=== PATIENT | female | born 1955 | race Caucasian/White ===

== ENCOUNTER 2020-11-05 09:55 | Emergency (ER) | payer MEDICAID ==
[~2020-11-05] VITALS: Ht 162.6 cm; Wt 79.5 kg
[2020-11-05] MEDS ORDERED: SIMV-259 PO (10:12)
[2020-11-05] MEDS ORDERED: INSLAN SQ (10:12)
[2020-11-05] MEDS ORDERED: thyroid med PO (10:12)
[2020-11-05] MEDS ORDERED: [UNRECOGNIZED DRUG - OTHER] IH (10:12)
[2020-11-05] MEDS ORDERED: INSU100V SQ (10:12)
[2020-11-05 10:54] LABS: COVID AG,FIA SOURCE NASOPHARYNGEAL
[2020-11-05 11:25] LABS: BASOPHILS % (AUTO) 1.1 % (0.0-2.0); EOSINOPHILS % (AUTO) 3.5 % (1.0-6.0); HEMATOCRIT 38.9 % (36-46); HEMOGLOBIN 12.5 g/dL (12.0-16.0); LYMPHOCYTES # (AUTO) 1.1 K/uL (1.0-4.8); LYMPHOCYTES % (AUTO) 15.7 % (22.0-44.0); MEAN CORPUSCULAR HEMOGLOBIN 28.8 pg (26.0-34.0); MEAN CORPUSCULAR HGB CONC 32.2 G/dL (31.0-37.0); MEAN CORPUSCULAR VOLUME 90 fL (80-100); MONOCYTES # (AUTO) 0.3 K/uL (0.1-1.0); MONOCYTES % (AUTO) 4.9 % (2.0-9.0); NEUTROPHILS # (AUTO) 5.3 K/uL (1.8-7.7); NEUTROPHILS % (AUTO) 74.8 % (40.0-70.0); PLATELET COUNT (AUTO) 260 K/uL (150-450); RED BLOOD CELL COUNT(AUTO) 4.34 MIL/uL (4.00-5.20); RED CELL DISTRIBUTION WIDTH 13.8 % (11.5-14.5)
[2020-11-05 11:37] LABS: CALCIUM, TOTAL 8.6 mg/dL (8.8-10.5); CREATININE 1.15 mg/dL (0.60-1.30); POTASSIUM 4.3 mmol/L (3.5-5.1)
[2020-11-05 11:57] LABS: ALBUMIN 3.6 g/dL (3.4-5.0); BILIRUBIN,TOTAL 0.7 mg/dL (0.1-1.0)
[2020-11-05] MEDS ORDERED: INSULIN REGULAR, HUMAN 100 UNITS/ML IVP ONE (12:00)
[2020-11-05 13:32] VITALS: BP 121/70
[2020-11-05 13:38] LABS: GLUCOMETER DEV NAME(LOC) ERT.5; GLUCOSE,POINT OF CARE 197 MG/DL (70-110)
== END 2020-11-05 13:49 | disposition home or self-care (01) ==
LOC: EMS 10:02
DX: E11.65 Type 2 diabetes mellitus with hyperglycemia (principal); Z20.822 Contact with and (suspected) exposure to COVID-19
CPT/HCPCS: 36415; 71045; 80053; 82962; 84484; 85025; 87426; 96374; 99284; J1815; U0003; 82948

== ENCOUNTER 2020-11-07 09:20 | Emergency (ER) | payer MEDICAID ==
[~2020-11-07] VITALS: Ht 170.2 cm; Wt 81.8 kg
[~2020-11-07 09:20] MED LIST: INSLAN SQ; INSU100V SQ; SIMV-259 PO; [UNRECOGNIZED DRUG - OTHER] IH; thyroid med PO
[2020-11-07] MEDS ORDERED: SODIUM CHLORIDE 0.9% 1,000 ML IV ONE (09:45)
[2020-11-07] MEDS ORDERED: INSULIN REGULAR, HUMAN 100 UNITS/ML IVP ONE ×2 (09:45→11:45)
[2020-11-07 11:30] VITALS: BP 118/76
== END 2020-11-07 12:20 | disposition home or self-care (01) ==
LOC: EMS 09:29
DX: E11.65 Type 2 diabetes mellitus with hyperglycemia (principal); J44.9 Chronic obstructive pulmonary disease, unspecified; E78.00 Pure hypercholesterolemia, unspecified; I10 Essential (primary) hypertension; F17.210 Nicotine dependence, cigarettes, uncomplicated; Z79.4 Long term (current) use of insulin
CPT/HCPCS: 82962; 96361; 96374; 96376; 99284; J1815; J7030; 82948

== ENCOUNTER 2020-12-30 04:45 | Emergency (ER) | payer MEDICAID ==
[~2020-12-30] VITALS: Ht 170.2 cm; Wt 77.3 kg
[2020-12-30 04:57] VITALS: BP 157/77
[2020-12-30] MEDS: KETOROLAC TROMETHAMINE 30 MG/ML VIAL IM ONE (05:05)
[2020-12-30] MEDS: CYCLOBENZAPRINE HCL 10 MG TABLET PO ONE (05:07)
[2020-12-30 05:26] LABS: GLUCOMETER DEV NAME(LOC) ERT.5; GLUCOSE,POINT OF CARE 334 MG/DL (70-110)
== END 2020-12-30 06:32 | disposition home or self-care (01) ==
LOC: EMS 04:45
DX: M54.50 Low back pain, unspecified (principal); J44.9 Chronic obstructive pulmonary disease, unspecified; E11.9 Type 2 diabetes mellitus without complications; E78.00 Pure hypercholesterolemia, unspecified; I10 Essential (primary) hypertension; F17.210 Nicotine dependence, cigarettes, uncomplicated
CPT/HCPCS: 82962; 96372; 99283; J1885